=== PATIENT | female | born 1985 | race Two or more races ===

== ENCOUNTER 2018-05-12 09:19 | Emergency (ER) | payer OTHER ==
[2018-05-12] MEDS ORDERED: NS 1,000 ML IV ONE (09:39)
--- NOTE | 2018-05-12 09:42 | EDPHY ---
H & P Stated Complaint: flu like symptoms with n/v/d and tachycardia Time Seen by Provider: 05/12/18 09:28 HPI/ROS: CHIEF COMPLAINT: "I think I have the flu" HISTORY OF PRESENT ILLNESS: 33-year-old immunocompetent female with up-to-date influenza vaccination complaining of 24 hr of sore throat, myalgias, fever, with development of nausea vomiting diarrhea in the past 12 hr. No abdominal pain. No dizziness. No international travel. No untreated water sources. No antibiotic use. REVIEW OF SYSTEMS: 10 systems reviewed and negative with the exception of the elements mentioned in the history of present illness PAST MEDICAL & SURGICAL HISTORY: No pertinent medical or surgical history . No history of abdominal surgeries. Up-to-date with influenza vaccination SOCIAL HISTORY: Half pack per day tobacco PHYSICAL EXAM (Prior to examination, patient consented to physical exam, hands were washed and my usual and customary physical exam procedures followed) 1) GENERAL: Well-developed, well-nourished, alert and oriented. Appears to be in no acute distress. 2) HEAD: Normocephalic, atraumatic 3) HEENT: Pupils equal, round, reactive to light bilaterally. Sclera anicteric. Nasopharynx, oropharynx, clear, no lesions. Dry mucous membranes. Ears bilaterally with normal tympanic membranes. No signs of otitis media otitis externa 4) NECK: Full range of motion, no meningeal signs. 5) LUNGS: Clear auscultation bilaterally, no wheezes, no rhonchi, no retractions. 6) HEART: Regular rate and rhythm, no murmur, no heave, no gallop. 7) ABDOMEN: No guarding, no rebound, no focal tenderness, negative McBurney's, negative Ibrahim's, negative Rovsing's, negative peritoneal sign, 8) MUSCULOSKELETAL: Moving all extremities, no focal areas of tenderness, no obvious trauma. No peripheral edema or discoloration. 9) BACK: No CVA tenderness, no midline vertebral tenderness, no fluctuance, no step-off, no obvious trauma, no visual or palpable abnormality. 10) SKIN: No rash, no petechiae. 11) Psychiatric: Patient is oriented X 3, there is no agitation. DIFFERENTIAL DIAGNOSIS: In no particular order including but not limited to influenza, viral gastroenteritis, pancreatitis - Personal History LMP (Females 10-55): 22-28 Days Ago Current Tetanus Diphtheria and Acellular Pertussis (TDAP): Unsure Tetanus Vaccine Date: <10 years - Medical/Surgical History Hx Asthma: No Hx Chronic Respiratory Disease: No Hx Diabetes: No Hx Cardiac Disease: No Hx Renal Disease: No Hx Cirrhosis: No Hx Alcoholism: No Hx HIV/AIDS: No Hx Splenectomy or Spleen Trauma: No Other PMH: colectomy thyroid issues - Social History Smoking Status: Current every day smoker Constitutional: Initial Vital Signs Temperature (C) 37.7 C 05/12/18 09:23 Heart Rate 114 H 05/12/18 09:23 Respiratory Rate 18 05/12/18 09:23 Blood Pressure 106/82 H 05/12/18 09:23 O2 Sat (%) 96 05/12/18 09:23 O2 Delivery Mode Room Air Allergies/Adverse Reactions: No Known Allergies Allergy (Verified 05/12/18 09:20) Home Medications: Medication Instructions Recorded Ondansetron Odt [Zofran Odt] 4 mg PO Q4PRN PRN #10 tab 05/12/18 Thyroid Supplements 05/12/18 Medical Decision Making ED Course/Re-evaluation: 9:40 a.m.: Patient is tachycardic. Will administer IV fluids, check diagnostic studies, administer antiemetic and re-evaluated. Care of patient under supervision of secondary supervising physician Dr. Carmelo Magallon with whom I discussed case. 10:56 a.m.: Re-evaluation, discussed her diagnostic days including negative influenza testing. Heart rate in the 90s. Re-examined her abdomen which is soft no guarding no rebound. No complaints of abdominal pain. She is able tolerate oral intake in the ER. This time I do not identify indication further diagnostic studies. We discussed more than likely viral etiology for symptoms. Discussed supportive care. I do not think that imaging indicated at this time. Doubt acute surgical abdominal pathology. She is maintain normal saturations. Plan will be discharge home with Zofran. Given my usual and customary discharge precautions Andinstructions. She feels comfortable being discharged. All questions and concerns addressed by myself. - Data Points Laboratory Results: Laboratory Results 05/12/18 09:50 05/12/18 09:50 05/12/18 05/12/18 05/12/18 09:50 09:50 09:50 WBC 16.28 10^3/uL H 10^3/uL (3.80-9.50) RBC 4.86 10^6/uL 10^6/uL (4.18-5.33) Hgb 14.9 g/dL g/dL (12.6-16.3) Hct 43.9 % % (38.0-47.0) MCV 90.3 fL fL (81.5-99.8) MCH 30.7 pg pg (27.9-34.1) MCHC 33.9 g/dL g/dL (32.4-36.7) RDW 12.3 % % (11.5-15.2) Plt Count 239 10^3/uL 10^3/uL (150-400) MPV 10.2 fL fL (8.7-11.7) Neut % (Auto) Pending Lymph % (Auto) Pending Cameron % (Auto) Pending Eos % (Auto) Pending Baso % (Auto) Pending Nucleat RBC Rel Count Pending Absolute Neuts (auto) Pending Absolute Lymphs (auto) Pending Absolute Monos (auto) Pending Absolute Eos (auto) Pending Absolute Basos (auto) Pending Absolute Nucleated RBC Pending Immature Gran % Pending Immature Gran # Pending Platelet Estimate Pending Sodium 138 mEq/L mEq/L (135-145) Potassium 4.2 mEq/L mEq/L (3.5-5.2) Chloride 106 mEq/L mEq/L (97-110) Carbon Dioxide 21 mEq/l L mEq/l (22-31) Anion Gap 11 mEq/L mEq/L (6-14) BUN 15 mg/dL mg/dL (7-23) Creatinine 0.6 mg/dL mg/dL (0.6-1.0) Estimated GFR > 60 Glucose 127 mg/dL H mg/dL (70-100) Calcium 9.5 mg/dL mg/dL (8.5-10.4) Total Bilirubin 0.8 mg/dL mg/dL (0.1-1.4) Conjugated Bilirubin 0.3 mg/dL mg/dL (0.0-0.5) Unconjugated Bilirubin 0.5 mg/dL mg/dL (0.0-1.1) AST 32 IU/L IU/L (14-46) ALT 38 IU/L IU/L (9-52) Alkaline Phosphatase 74 IU/L IU/L (38-126) Total Protein 8.0 g/dL g/dL (6.3-8.2) Albumin 4.9 g/dL g/dL (3.5-5.0) Lipase 38 IU/L IU/L (23-300) Beta HCG, Qual Pending Nasal Influenza A PCR Nasal Influenza B PCR 05/12/18 09:30 WBC RBC Hgb Hct MCV MCH MCHC RDW Plt Count MPV Neut % (Auto) Lymph % (Auto) Cameron % (Auto) Eos % (Auto) Baso % (Auto) Nucleat RBC Rel Count Absolute Neuts (auto) Absolute Lymphs (auto) Absolute Monos (auto) Absolute Eos (auto) Absolute Basos (auto) Absolute Nucleated RBC Immature Gran % Immature Gran # Platelet Estimate Sodium Potassium Chloride Carbon Dioxide Anion Gap BUN Creatinine Estimated GFR Glucose Calcium Total Bilirubin Conjugated Bilirubin Unconjugated Bilirubin AST ALT Alkaline Phosphatase Total Protein Albumin Lipase Beta HCG, Qual Nasal Influenza A PCR NEGATIVE FOR FLU A (NEGATIVE) Nasal Influenza B PCR NEGATIVE FOR FLU B (NEGATIVE) Medications Given: Discontinued Medications Sodium Chloride (Ns) 1,000 mls @ 0 mls/hr IV ONCE ONE PRN Reason: Wide Open Stop: 05/12/18 09:40 Last Admin: 05/12/18 09:47 Dose: 1,000 mls Departure - Departure Disposition: Home, Routine, Self-Care Clinical Impression: Nausea vomiting and diarrhea Condition: Good Instructions: Acute Diarrhea (ED) Additional Instructions: Seek immediate medical attention if you develop new or worsening symptoms, if you develop fevers, chills, inability to tolerate oral intake or any other symptoms that concerns you. Referrals: [facility],. [Clinic] - 1-2 days without fail Stand Alone Forms: Work Excuse Prescriptions: Ondansetron Odt [Zofran Odt] 4 mg PO Q4PRN PRN #10 tab PRN Reason: Nausea
[2018-05-12 10:03] LABS: PLATELET COUNT 239 10^3/uL (150-400)
[2018-05-12 11:37] VITALS: BP 110/77
== END 2018-05-12 11:40 | disposition home or self-care (01) ==
DX: R11.2 Nausea with vomiting, unspecified (principal); R19.7 Diarrhea, unspecified; R07.0 Pain in throat; M79.10 Myalgia, unspecified site; R50.9 Fever, unspecified